=== PATIENT | female | born 1980 | race Caucasian/White ===

== ENCOUNTER 2018-02-25 09:31 | Emergency (ER) | payer SELFPAY ==
[2018-02-25 09:44] VITALS: TEMP 98.7
--- NOTE | 2018-02-25 10:17 | ED.PDOC ---
History of Present Illness - General Chief Complaint: Skin/Abrasion/Tear Stated Complaint: possible insect bite to right hand Time Seen by Provider: 02/25/18 09:50 Source: patient Exam Limitations: no limitations - History of Present Illness Initial Comments: Patient presents with three superficial abscesses on the right wrist for several days. They are not painful and she has not had a fever. 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 She tried to drain them at home by poking them with a needle. No other complaints. Timing/Duration: other - "several days" Severity: mild Improving Factors: nothing Worsening Factors: nothing Associated Symptoms: denies symptoms Allergies/Adverse Reactions: Allergies NO KNOWN ALLERGY Allergy (Verified 02/25/18 09:43) Home Medications: Ambulatory Orders Sulfa/Trimeth 800/160 (Ds) Tab [Bactrim DS] 1 tablet PO BID #20 tab 02/25/18 Review of Systems - Review of Systems Constitutional: States: no symptoms reported EENTM: States: no symptoms reported Respiratory: States: no symptoms reported Cardiology: States: no symptoms reported Gastrointestinal/Abdominal: States: no symptoms reported Genitourinary: States: no symptoms reported Musculoskeletal: States: no symptoms reported Skin: States: see HPI Neurological: States: no symptoms reported Endocrine: States: no symptoms reported Past Medical History (General) - Patient Medical History Hx Seizures: No Hx Stroke: No Hx Dementia: No Hx Asthma: No Hx of COPD: No Hx Cardiac Disorders: No Hx Hypertension: No Hx Thyroid Disease: No Surgical History: no surgical history Family Medical History - Family History Father Hx Family Hypertension: Yes Physical Exam - Physical Exam General Appearance: Alert Respiratory: lungs clear, normal breath sounds Cardiovascular/Chest: normal peripheral pulses, regular rate, rhythm, no edema Gastrointestinal/Abdominal: normal bowel sounds, non tender, soft Skin Exam: other - Three superfical erythmatic, blanching abscesses on the posterior and anterior right distal forearm. NTTP. Each has a healing wound on the apex where they were punctured at home. Progress - Progress Progress: 02/25/18 10:18 Largest abscess was sterlized with betadine. The wound was punctured with a 22 guage needle and a small amount of purulence was expressed. Culture taken and sent. Patient tolerated procedure well. Bactrim prescribed. 02/25/18 10:21 Questions were elicited and answered. Patient voiced understanding and agreement with the plan. Departure - Departure Clinical Impression: Abscess Disposition: Discharge to Home or Self Care Condition: Good Departure Forms: ED Discharge - Pt. Copy, Patient Portal Self Enrollment Diet: resume usual diet Activity: increase activity as tolerated Prescriptions: Sulfa/Trimeth 800/160 (Ds) Tab [Bactrim DS] 1 tablet PO BID #20 tab Home Medications: Ambulatory Orders Sulfa/Trimeth 800/160 (Ds) Tab [Bactrim DS] 1 tablet PO BID #20 tab 02/25/18 Additional Instructions: Take medication as prescribed. Return to the E.R. if no improvement in 4-5 days or if they worsen over the next three days. Return for temperature greater than 100.4. Return if not completely healed in 10 days.
[2018-02-25 10:51] VITALS: BP 150/96; O2SAT 97
== END 2018-02-25 10:53 | disposition home or self-care (01) ==
LOC: ER 09:31
DX: L02.413 Cutaneous abscess of right upper limb (principal)